=== PATIENT | female | born 1970 | race Caucasian/White ===

== ENCOUNTER 2016-09-01 02:00 | Emergency (ER) | payer OTHER ==
[~2016-09-01 02:00] MED LIST: ALPRAZOLAM PO; AQUAPHOR OINT2270 GM TOP; ATARAX PO; FLEXERIL10 MG PO; HYDROXYZINE HCL25 M1 PO; KEFLEX500 MG PO; KETOPROFEN PO; LEXAPRO PO; LORTAB 101 TAB 10/5; MOBIC15 MG PO; NAPROSYN375 MG PO; NAPROSYN500 MG PO; NO MEDICATIONS; PERCOCET10 PO; PHENERGAN PO; TRAZODONE PO; ZYRTEC PO; ZYRTEC10 M2 PO
[2016-09-01 02:32] LABS: BASOPHIL# 0.1 X10e3 (0-0.3); BASOPHIL% 0.8 % (0-2.5); DIFF IND NO; EOSINOPHIL# 0.4 X10e3 (0-0.7); EOSINOPHIL% 3.5 % (0.0-7.0); HEMATOCRIT 40.6 % (35.0-45.0); HEMOGLOBIN 13.5 gm/dL (12.0-16.0); LYMPHOCYTE# 1.8 X10e3 (1.0-3.5); LYMPHOCYTE% 14.4 % (17.0-45.0); MEAN CELL VOLUME 91.5 FL (83-96); MEAN CORPUSCULAR HEMOGLOBIN 30.6 PG (28-34); MEAN CORPUSCULAR HGB CONC 33.4 g/dL (30-36); MEAN PLATELET VOLUME 7.6 FL (6.5-11.5); MONOCYTE# 1.2 X10e3 (0-1.0); MONOCYTE% 9.6 % (3.0-12.0); NEUTROPHIL# 9.1 X10e3 (1.5-7.1); NEUTROPHIL% 71.7 % (40-75); PLATELET COUNT 370 X10e3 (140-420); RED BLOOD COUNT 4.43 X10e (3.90-5.30); RED CELL DISTRIBUTION WIDTH 14.2 % (11.0-15.5); WHITE BLOOD COUNT 12.7 X10e3 (4.0-10.5)
[2016-09-01 03:05] LABS: BLOOD UREA NITROGEN 9 mg/dL (9-23); CALCIUM SERUM 8.4 mg/dL (8.4-10.2); CARBON DIOXIDE 24 mmol/L (22-31); CHLORIDE 103 mmol/L (100-111); CREATININE SERUM 0.6 mg/dL (0.6-1.4); GLOM FILT RATE Estimated ABOVE60 mL/min (>60); GLUCOSE FASTING 103 mg/dL (70-110); SODIUM 136 mmol/L (135-145)
[2016-09-02] MEDS ORDERED: NEOMYCIN-POLYMY10 M1 (12:00)
[2016-09-03] MEDS ORDERED: BUSPAR15 M3 (11:58)
[2016-09-03] MEDS ORDERED: ARTIFICIAL TEAR1 DRP (11:58)
[2016-09-03] MEDS ORDERED: LEVO-T125 MCG (11:59)
[2016-09-03] MEDS ORDERED: HYDROXYZINE HCL25 M1 (11:59)
[2016-09-03] MEDS ORDERED: NAPROSYN500 MG PO (12:00)
[2016-09-03] MEDS ORDERED: RISPERDAL1 M1 (12:01)
[2016-09-03] MEDS ORDERED: BACTRIM DS TABL1 TA2 (12:02)
[2016-09-03] MEDS ORDERED: DESYREL100 MG (12:03)
[2016-09-03] MEDS ORDERED: ZYRTEC10 M4 PO (12:04)
[2016-09-03] MEDS ORDERED: HYDROCODON-ACE1 EAC7 PO (12:06)
[2016-09-03] MEDS ORDERED: KEFLEX500 MG PO (12:06)
== END 2016-09-01 05:05 | disposition home or self-care (01) ==
LOC: CED 02:00
PROVIDERS: Emergency Medicine
DX: L03.211 Cellulitis of face (principal); L02.01 Cutaneous abscess of face; R65.10 Systemic inflammatory response syndrome (SIRS) of non-infectious origin without acute organ dysfunction; E87.6 Hypokalemia; F17.200 Nicotine dependence, unspecified, uncomplicated
CPT/HCPCS: 36415; 80048; 85025; 96365; 96367; 96368; 96375; 99284; J2270; J2543; J3370

== ENCOUNTER → 2016-09-03 | Day surgery (SDC) | payer OTHER ==
[~2016-09-03] MED LIST changes: +ARTIFICIAL TEAR1 DRP; +BACTRIM DS TABL1 TA2; +BUSPAR15 M3; +DESYREL100 MG; +HYDROCODON-ACE1 EAC7 PO; +HYDROXYZINE HCL25 M1; +LEVO-T125 MCG; +NEOMYCIN-POLYMY10 M1; +RISPERDAL1 M1; +ZYRTEC10 M4 PO
--- NOTE | ~2016-09-03 | EKG ---
PATIENT: URMILA LEDESMA UNIT #: [id number] Ventricular Rate: 90 BPM Atrial Rate: 90 BPM P-R Interval: 126 ms QRS Duration: 88 ms Q-T Interval: 388 ms QTC Calculation(Bezet): 474 ms P [place]: 74 degrees Calculated R [place]: 64 degrees Calculated T [place]: 55 degrees Diagnosis Line: Normal sinus rhythm Diagnosis Line: Normal ECG Diagnosis Line: When compared with ECG of 07-DEC-2014 15:59, Diagnosis Line: No significant change was found Diagnosis Line: Confirmed by CHRIST STOCK MD ([id number]) on 09/04/2016 Diagnosis Line: 5:38:33 PM INTERPRETING MD: MONTRELL BARAJAS
--- NOTE | ~2016-09-03 | OR ---
Unit #: [id number] #: [id number] Patient: URMILA LEDESMA [id number] [address] [address] [id number] O MR#: [id number] NAME: URMILA LEDESMA ROOM: Date of Procedure: 09/03/2016 Admission Date: 09/03/2016 Surgeon: Brent Iverson M.D. : 1970 Attending Physician: Brent Iverson M.D. Primary Care Physician: Atilio Anderson M.D. OPERATIVE REPORT PREOPERATIVE DIAGNOSIS Left preauricular abscess. POSTOPERATIVE DIAGNOSIS Left preauricular abscess. PROCEDURE PERFORMED Incision and drainage of left preauricular abscess. ANESTHESIA Monitored anesthesia care with 1% Xylocaine plain local anesthesia and 0.5% Marcaine plain local anesthesia. FINDINGS The area was incised and drained and packed with iodoform gauze. SPECIMENS Sent to microbiology. COMPLICATIONS None apparent. CONDITION The patient tolerated the procedure well. INDICATIONS FOR PROCEDURE The patient is a 45-year-old white female, who presented with a left preauricular abscess. She presents at this time for incision and drainage. DESCRIPTION OF PROCEDURE After obtaining informed consent as well as receiving preoperative antibiotics, the patient was brought to the operating room and after adequate monitored anesthesia care was placed, had the left preauricular area prepped and draped in a sterile fashion. It was anesthetized with 1% Xylocaine plain local anesthesia. It was incised and drained and large amount of purulent material was evacuated. All loculations were broken up. The wound was irrigated. Hemostasis was obtained with the Bovie. All areas were infiltrated with 0.5% Marcaine plain local anesthesia and packed with 1/4-inch iodoform gauze and covered with a dry dressing. Needle counts, sponge counts, and instrument counts were all correct as reported by the scrub nurse x2. The patient went from the operative room Unit #: [id number] #: [id number] Patient: URMILA LEDESMA to the recovery room in stable condition. Dictated by... Gibran Montgomery/santos TD: 09/03/2016 21:54 JOB #: [id number] CC: [facility] OPERATIVE REPORT X Brent Iverson MD PROCEDURE OPERATIVE NOTE
[2016-09-03 07:18] LABS: HEMOGLOBIN 13.2 gm/dL (12.0-16.0); MEAN CELL VOLUME 91.8 FL (83-96); MEAN CORPUSCULAR HEMOGLOBIN 31.2 PG (28-34); MEAN PLATELET VOLUME 7.3 FL (6.5-11.5); RED BLOOD COUNT 4.25 X10e (3.90-5.30); RED CELL DISTRIBUTION WIDTH 13.8 % (11.0-15.5)
[2016-09-03 07:28] LABS: AMPHETAMINE NEG (NEG); BARBITURATES NEG (NEG); BENZODIAZEPINES POS (NEG); COCAINE POS (NEG); MARIJUANA POS (NEG); OPIATES POS (NEG); TRICYCLIC ANTIDEPRESSANTS NEG (NEG); U METHADONE NEG (NEG)
[2016-09-03 07:46] LABS: BUN/CREATININE RATIO 6.25; CALCIUM SERUM 8.8 mg/dL (8.4-10.2); CREATININE SERUM 1.6 mg/dL (0.6-1.4); POTASSIUM 3.6 mmol/L (3.5-5.1)
== END | disposition home or self-care (01) ==
LOC: CSUR 06:07
PROVIDERS: Surgery
DX: H60.02 Abscess of left external ear (principal); J45.909 Unspecified asthma, uncomplicated; F17.210 Nicotine dependence, cigarettes, uncomplicated; Z87.440 Personal history of urinary (tract) infections; Z79.2 Long term (current) use of antibiotics; Z79.899 Other long term (current) drug therapy; Z90.710 Acquired absence of both cervix and uterus; Z90.89 Acquired absence of other organs
CPT/HCPCS: 80048; 80307; 85027; 87070; 87075; 87077; 87186; 87205; 93005; J0690; J2250

== ENCOUNTER 2016-12-01 17:25 | Emergency (ER) | payer OTHER ==
--- NOTE | ~2016-12-01 | CT4 ---
[facility] A Service of [facility] RADIOLOGY TEXT RESULTS PATIENT: URMILA LEDESMA LOCATION: [facility] : [birth year] UNIT #: [id number] AGE: [address]: Glenn Centeno MD SEX: F ORDER DR: [id number] [facility] [address] [place], [place] [address] [id number] MR#: [id number] Acc #: [id number] NAME: URMILA LEDESMA. : 1970 SEX: F STUDY DATE/TIME: 12/01/2016 19:35 UNIT: [facility] ROOM: STUDY DESCRIPTION: CT Abd and Pelv Wo Cont Attending Physician: Glenn Centeno M.D. Ordering Physician: Glenn Centeno M.D. Primary Care Physician: Atilio Anderson M.D. MEDICAL IMAGING REPORT This report is preliminary unless electronic signature is present EXAM CT abdomen and pelvis without IV contrast COMPARISON November 10, 2020. INDICATION A 46-year-old female with bilateral flank abdominal pain and dysuria for [address] imaging abdomen and pelvis was performed without IV contrast. Coronal sagittal reformats were constructed. Lack of IV contrast limits evaluation of adenopathy and vasculature as well as viscera. This CT exam was performed with one or more of the following radiation dose reduction techniques: automatic exposure control, adjustment of mA and/or kV according to patient size, and iterative reconstruction. FINDINGS Tiny fat-containing umbilical hernia. Mild multilevel degenerative facet disease of the lower lumbar spine. No acute findings imaged lower chest. Unenhanced liver, gallbladder, pancreas, spleen, adrenal glands are within normal limits. Urinary bladder is within normal limits. There is a 3 mm calcium density in the left pelvis which is not seen on comparison CT of 2010. This seems too far lateral to be within the distal left ureter, and there is no evidence of upstream left hydronephrosis or hydroureter. There is no evidence of renal calculus on either side, and there is no right ureteral calculus. Findings could reflect pelvic phlebolith. Obstructing distal left ureteral calculus although thought less likely is not entirely excluded. Urinary bladder is unremarkable. There has been STS. [facility] A Service of [facility] RADIOLOGY TEXT RESULTS PATIENT: URMILA LEDESMA LOCATION: [facility] : 70 UNIT #: [id number] AGE: [address]: Glenn Centeno MD SEX: F ORDER DR: prior hysterectomy. No adnexal mass lesions are seen. There is a diverticulum of the sigmoid colon without evidence of acute diverticulitis. There is no evidence of bowel obstruction. Appendix is within normal limits. No free fluid or pneumoperitoneum. No periureteral or perinephric stranding. Normal caliber of the abdominal aorta. There are scattered calcifications of the abdominal aorta. No evidence of adenopathy on the current exam. Right-sided coronary artery calcifications. IMPRESSION 1. There is a 3 mm calcium density in the left lateral pelvis near the pelvic side wall which was not seen on comparison exam. This is thought to represent a gonadal vein phlebolith, but a distal left ureteral calculus is not entirely excluded although thought less likely. There are no secondary findings to suggest obstructing ureteral calculus as there is no hydronephrosis or hydroureter, and there is no periureteral or perinephric stranding, and there are no other urinary collecting system calculi including within the kidneys. Clinical correlation recommended. 2. Prior hysterectomy. 3. Minimal calcification of the abdominal aorta as well as calcifications of the right coronary artery. 4. Sigmoid diverticulum without evidence of acute diverticulitis. Dictated by... Keyon Pozo M.D. THIS IS AN ELECTRONICALLY VERIFIED REPORT Keyon Pozo M.D. at 12/02/2016 3:42 PM Felipe TD: 12/01/2016 23:57 JOB #: [id number] MEDICAL IMAGING REPORT Page 1 of 1 COPY
[2016-12-01 19:09] LABS: URINE SOURCE CLEAN CATCH
[2016-12-01 19:20] LABS: URINE APPEARANCE CLOUDY; URINE BILIRUBIN NEG (NEG); URINE BLOOD 2+ (NEG); URINE COLOR YELLOW; URINE GLUCOSE NEG (NEG); URINE KETONE TRACE (NEG); URINE LEUKOCYTE ESTERASE 3+ (NEG); URINE NITRATE POS (NEG); URINE PROTEIN 1+ (NEG); URINE SPECIFIC GRAVITY 1.014 (1.003-1.035)
[2016-12-01 19:24] LABS: CULTURE INDICATED? YES; URINE BACTERIA AUWI 4+ (NEGATIVE); URINE SQUAMOUS EPITHELIAL CELL NONE SEEN /[HPF]; UWBCS1 AUWI 200-300 (0-5)
[2016-12-01 19:37] LABS: BASOPHIL# 0.1 X10e3 (0-0.3); EOSINOPHIL# 0.2 X10e3 (0-0.7); EOSINOPHIL% 1.4 % (0.0-7.0); HEMATOCRIT 41.7 % (35.0-45.0); LYMPHOCYTE# 1.8 X10e3 (1.0-3.5); LYMPHOCYTE% 14.9 % (17.0-45.0); MEAN CELL VOLUME 91.7 FL (83-96); MEAN CORPUSCULAR HEMOGLOBIN 30.9 PG (28-34); MEAN CORPUSCULAR HGB CONC 33.7 g/dL (30-36); MEAN PLATELET VOLUME 7.5 FL (6.5-11.5); MONOCYTE# 1.1 X10e3 (0-1.0); MONOCYTE% 9.6 % (3.0-12.0); NEUTROPHIL# 8.6 X10e3 (1.5-7.1); NEUTROPHIL% 73.1 % (40-75); PLATELET COUNT 356 X10e3 (140-420); RED BLOOD COUNT 4.55 X10e (3.90-5.30); RED CELL DISTRIBUTION WIDTH 14.2 % (11.0-15.5); WHITE BLOOD COUNT 11.8 X10e3 (4.0-10.5)
[2016-12-01 19:41] LABS: DIFF IND NO
[2016-12-01 19:59] LABS: ALBUMIN SERUM 4.1 g/dL (3.5-5.0); BILIRUBIN, DIRECT 0.1 mg/dL (0.0-0.2); BILIRUBIN,INDIRECT 0.6 mg/dL (0.0-0.9); BILIRUBIN,TOTAL 0.7 mg/dL (0.2-2.0); BUN/CREATININE RATIO 17.5; CREATININE SERUM 0.8 mg/dL (0.6-1.4); GLOM FILT RATE Estimated 88.5 mL/min (>60); POTASSIUM 3.4 mmol/L (3.5-5.1); PROTEIN TOTAL SERUM 7.5 g/dL (6.0-8.3)
== END 2016-12-01 22:29 | disposition home or self-care (01) ==
LOC: CED 17:25
DX: N39.0 Urinary tract infection, site not specified (principal); F17.210 Nicotine dependence, cigarettes, uncomplicated; Z79.899 Other long term (current) drug therapy
CPT/HCPCS: 36415; 74176; 80048; 80076; 81003; 83605; 83690; 84703; 85025; 87086; 87088; 87186; 96365; 99284; J0696; J1885